=== PATIENT | female | born 1990 | race Caucasian/White ===

== ENCOUNTER 2016-11-25 13:04 | Emergency (ER) | payer OTHER ==
[~2016-11-25] VITALS: Ht 165.1 cm; Wt 100.0 kg
[2016-11-25 13:06] VITALS: BP 178/107; PULSE 113; TEMP 98.1
[2016-11-25] MEDS ORDERED: PERCOCET 325 MG1 TA2 PO (13:30)
== END 2016-11-25 14:43 | disposition home or self-care (01) ==
LOC: COL.ER 13:04
DX: T24.212A Burn of second degree of left thigh, initial encounter (principal); Z23 Encounter for immunization; X10.0XXA Contact with hot drinks, initial encounter

== ENCOUNTER → 2019-01-06 | Outpatient (CLI) | payer OTHER ==
[~2019-01-06] MED LIST: PERCOCET 325 MG1 TA2 PO
== END ==
LOC: MC.RAD 13:54
DX: N64.4 Mastodynia (principal)

== ENCOUNTER → 2020-07-28 | Outpatient (CLI) | payer OTHER ==
[~2020-07-28] MED LIST changes: +IBU800 M1 PO; +INDERAL LA120 MG PO; +PRENATAL TABLET PO; +PROAIR HFA0.09 MG/AC IH; +SYNTHROID 0.0.025 MG PO
== END ==
LOC: DIA.ED 10:57
DX: O24.419 Gestational diabetes mellitus in pregnancy, unspecified control (principal); I10 Essential (primary) hypertension
CPT/HCPCS: G0108

== ENCOUNTER → 2020-11-11 | Outpatient (CLI) | payer OTHER | LOC: ZCOL.LAB 08:55 | DX: Z20.822 Contact with and (suspected) exposure to COVID-19 (principal) ==

== ENCOUNTER 2020-11-15 06:42 | Inpatient (IN) | payer OTHER ==
[2020-11-15] VITALS (18 sets, daily range): BP systolic 98–178; BP diastolic 59–105; PULSE 55–70; TEMP 97.6–98.7
[~2020-11-15] VITALS: Ht 165.1 cm; Wt 112.7 kg
[~2020-11-15 06:42] MED LIST changes: -IBU800 M1 PO; -INDERAL LA120 MG PO; -PRENATAL TABLET PO; -PROAIR HFA0.09 MG/AC IH; -SYNTHROID 0.0.025 MG PO
--- NOTE | 2020-11-15 17:35 | NUR ---
1735- 39.2 G1L0, 1900 sched. IOL presents to unit with c/o decreased movement since 1100 this am. Denies any LOF, VB, or contractions. Ambulatory to LDR6 with spouse. Changes into clean gown. 1738- EFM explained and placed x2. VS obtained. Assessment completed. 1801- Dr. Solares updated on patient. See physician notification. 1814- IV to right hand. Labs obtained via IV site. LR bolus infusing per orders. 1819- Report to Gabbie Esparza RN who assumes care of patient at this time.
[2020-11-15] MEDS ORDERED: PROAIR HFA0.09 MG/AC IH (17:55)
[2020-11-15] MEDS ORDERED: INDERAL LA120 MG PO (17:56)
[2020-11-15] MEDS ORDERED: PRENATAL TABLET PO (17:56)
[2020-11-15 18:40] LABS: BASO % 0.3 % (0.0-2.0); EOS # 0.1 (0.0-0.7); GRAN # 7.7 (1.4-6.5); GRAN % 64.1 % (42.2-75.2); HEMATOCRIT 36.4 % (37.0-47.0); HEMOGLOBIN 12.6 g/dl (12.5-16.0); LYMPH # 2.8 (1.2-3.4); LYMPH % 23.3 % (20.0-51.0); MEAN CELL VOLUME 91 fl (80.0-100.0); MEAN CORPUSCULAR HEMOGLOBIN 32 pg (27.0-31.0); MEAN CORPUSCULAR HGB CONC 35 g/dl (33.0-37.0); MEAN PLATELET VOLUME 11.9 fl (7.4-10.4); MONO # 1.3 (0.1-0.6); MONO % 10.9 % (1.7-9.3); PLATELET COUNT 215 K/mm3 (130-400); RED BLOOD COUNT 3.99 M/mm3 (4.10-5.30); REDCELL DISTRIBUTION WIDTH-CV 14.3 % (11.5-14.5)
[2020-11-15 19:02] LABS: ALBUMIN 3.7 gm/dL (3.5-5.0); BILIRUBIN,TOTAL 0.1 mg/dL (0.0-1.0); CALCIUM 9.8 mg/dL (8.4-10.2); CREATININE, serum 0.61 (0.52-1.25); POTASSIUM 4.1 mmol/L (3.4-5.0); TOTAL PROTEIN 6.7 gm/dL (6.4-8.2)
[2020-11-15 19:16] LABS: COLLECTION METHOD CLEAN CATCH
[2020-11-15 19:29] LABS: PH 7 (5-8); SQUAMOUS EPITHELIAL 0-2 /hpf; URINE APPEARANCE Clear; URINE BACTERIA None Seen /hpf; URINE BILIRUBIN Negative (NEGATIVE); URINE BLOOD Negative (NEGATIVE); URINE COLOR Straw; URINE GLUCOSE Negative (NEGATIVE); URINE KETONE Negative (NEGATIVE); URINE LEUKOCYTE ESTERASE Negative (NEGATIVE); URINE NITRATE Negative (NEGATIVE); URINE PROTEIN(semi-quant) Negative (NEGATIVE); URINE RBC None Seen /hpf; URINE UROBILINOGEN Negative (NEGATIVE); URINE WBC 0-2 /hpf
[2020-11-16] VITALS (11 sets, daily range): BP systolic 97–149; BP diastolic 58–92; PULSE 52–64; TEMP 97.7–98.4
--- NOTE | 2020-11-16 12:29 | NUR ---
Initial visit attempt; Patient indisposed, Vet Assistant left card offering congratulations and God's blessings for the of their son along with information regarding the availability of spiritual care at our hospital.
--- NOTE | 2020-11-17 06:45 | NUR ---
BEDSIDE REPORT DECLINED. REPORT RECEIVED FROM OFF GOING RN SATNAM Pete. CARE TAKEN OVER BY THIS RN.
[2020-11-17 08:45] VITALS: BP 128/93; PULSE 69; TEMP 98.4
[2020-11-17 09:37] LABS: HEMOGLOBIN 11.5 g/dl (12.5-16.0); MEAN CELL VOLUME 94 fl (80.0-100.0); MEAN CORPUSCULAR HEMOGLOBIN 32 pg (27.0-31.0); MEAN CORPUSCULAR HGB CONC 34 g/dl (33.0-37.0); MEAN PLATELET VOLUME 11.1 fl (7.4-10.4); PLATELET COUNT 218 K/mm3 (130-400); RED BLOOD COUNT 3.62 M/mm3 (4.10-5.30); REDCELL DISTRIBUTION WIDTH-CV 14.5 % (11.5-14.5)
[2020-11-17 17:13] VITALS: BP 119/71; PULSE 61; TEMP 98
[2020-11-17 20:00] VITALS: BP 129/79; PULSE 66; TEMP 97.9
[2020-11-18 01:00] VITALS: BP 128/78; PULSE 72; TEMP 97.4
[2020-11-18 07:45] VITALS: BP 136/92; PULSE 63; TEMP 97.8
[2020-11-18] MEDS ORDERED: IBU800 M1 PO (09:26)
[2020-11-18] MEDS ORDERED: PERCOCET 325 MG1 TA2 PO (09:26)
[2020-11-18] MEDS ORDERED: INDERAL LA120 MG PO (09:26)
[2020-11-18] MEDS ORDERED: SYNTHROID 0.0.025 MG PO (09:27)
== END 2020-11-18 13:00 | disposition home or self-care (01) | DRG 787 ==
LOC: OB 17:30 → LDR 17:30 → OB 23:30
PROVIDERS: ADMIT Student in an Organized Health Care Education/Training Program
PROC: 10D00Z1 Extraction of Products of Conception, Low, Open Approach (ICD-10-PCS; principal; 2020-11-15)
DX: O36.8130 Decreased fetal movements, third trimester, not applicable or unspecified (principal); O10.92 Unspecified pre-existing hypertension complicating childbirth; O36.8330 Maternal care for abnormalities of the fetal heart rate or rhythm, third trimester, not applicable or unspecified; O99.214 Obesity complicating childbirth; O99.344 Other mental disorders complicating childbirth; F41.9 Anxiety disorder, unspecified; O77.0 Labor and delivery complicated by meconium in amniotic fluid; O99.284 Endocrine, nutritional and metabolic diseases complicating childbirth; E55.9 Vitamin D deficiency, unspecified; O99.52 Diseases of the respiratory system complicating childbirth; J45.909 Unspecified asthma, uncomplicated; O69.1XX0 Labor and delivery complicated by cord around neck, with compression, not applicable or unspecified; Z3A.39 39 weeks gestation of pregnancy; Z37.0 Single live birth; Z88.0 Allergy status to penicillin
CPT/HCPCS: J0690; J1100; J1200; J2405; J2590; J2791; J3010; J7120

== ENCOUNTER 2020-11-27 16:16 | Emergency (ER) | payer OTHER ==
[~2020-11-27] VITALS: Ht 165.1 cm; Wt 109.1 kg
[~2020-11-27 16:16] MED LIST changes: +IBU800 M1 PO; +INDERAL LA120 MG PO; +PRENATAL TABLET PO; +PROAIR HFA0.09 MG/AC IH; +SYNTHROID 0.0.025 MG PO
[2020-11-27 16:39] VITALS: TEMP 98.4
[2020-11-27 17:38] LABS: BASO % 0.4 % (0.0-2.0); EOS # 0.2 (0.0-0.7); EOS % 1.9 % (0-4.0); GRAN # 4.9 (1.4-6.5); GRAN % 61.6 % (42.2-75.2); HEMOGLOBIN 11.6 g/dl (12.5-16.0); LYMPH # 2.1 (1.2-3.4); MEAN CELL VOLUME 94 fl (80.0-100.0); MEAN CORPUSCULAR HEMOGLOBIN 31 pg (27.0-31.0); MEAN CORPUSCULAR HGB CONC 34 g/dl (33.0-37.0); MONO # 0.8 (0.1-0.6); MONO % 9.5 % (1.7-9.3); PLATELET COUNT 261 K/mm3 (130-400); RED BLOOD COUNT 3.69 M/mm3 (4.10-5.30); REDCELL DISTRIBUTION WIDTH-CV 13.9 % (11.5-14.5)
[2020-11-27 17:51] LABS: ALBUMIN 3.8 gm/dL (3.5-5.0); BILIRUBIN,TOTAL 0.4 mg/dL (0.0-1.0); CALCIUM 9.2 mg/dL (8.4-10.2); CREATININE, serum 0.81 (0.52-1.25); POTASSIUM 3.9 mmol/L (3.4-5.0); TOTAL PROTEIN 6.7 gm/dL (6.4-8.2)
[2020-11-27 18:18] LABS: HEMATOCRIT 34.5 % (37.0-47.0)
[2020-11-27 18:47] LABS: COLLECTION METHOD CLEAN CATCH
[2020-11-27 19:08] LABS: MUCOUS Present /lpf; PH 7 (5-8); SQUAMOUS EPITHELIAL None Seen /hpf; URINE APPEARANCE Clear; URINE BACTERIA None Seen /hpf; URINE BILIRUBIN Negative (NEGATIVE); URINE BLOOD 2+ (NEGATIVE); URINE COLOR Yellow; URINE GLUCOSE Negative (NEGATIVE); URINE KETONE Negative (NEGATIVE); URINE LEUKOCYTE ESTERASE Trace (NEGATIVE); URINE NITRATE Negative (NEGATIVE); URINE PROTEIN(semi-quant) Negative (NEGATIVE); URINE UROBILINOGEN Negative (NEGATIVE)
[2020-11-27 21:47] VITALS: BP 109/82; PULSE 62
== END 2020-11-27 21:49 | disposition home or self-care (01) ==
LOC: COL.ER 16:16
PROVIDERS: Physician Assistant
DX: O16.5 Unspecified maternal hypertension, complicating the puerperium (principal); E03.9 Hypothyroidism, unspecified; Z79.890 Hormone replacement therapy; Z79.899 Other long term (current) drug therapy
CPT/HCPCS: J1940

== ENCOUNTER 2023-07-08 15:00 | Outpatient (RCR) | payer OTHER ==
[2023-06-24 11:17] VITALS: BP 139/84; PULSE 84; TEMP 98.8
--- NOTE | 2023-06-24 12:19 | NUR ---
Pt tolerated infusion without issue. She remained in dept for monitoring following infusion. She was also provided with [facility] pt education packet. IV DC'd, site wrapped with coban. She exits dept with steady gait. Free of complaints at discharge.
[2023-07-01 15:00] VITALS: BP 142/93; PULSE 75; TEMP 97.9
[~2023-07-08] VITALS: Ht 165.1 cm; Wt 109.2 kg
[~2023-07-08 15:00] MED LIST changes: +Acetaminophen 500 MG TAB PO SCH; +HCTZ 25MG TAB25 MG PO; +IMITREX50 MG PO; +Iron Sucrose 200 MG in NS 100 ML Over 15 minutes IV SCH; +NATURAL IRON65 MG PO; +NYSTATIN POWDER30 GM TOP; +SLYND4 MG PO; +diphenhydrAMINE 25 MG CAP PO SCH
[2023-07-08] MEDS ORDERED: Iron Sucrose 200 MG in NS 100 ML Over 15 minutes IV ONE (15:30)
[2023-07-08 15:38] VITALS: BP 146/96; PULSE 74; TEMP 98.8
== END 2023-07-08 15:57 | disposition home or self-care (01) ==
LOC: EUO 15:00
DX: D50.9 Iron deficiency anemia, unspecified (principal)
CPT/HCPCS: J1756